=== PATIENT | female | born 1995 | race Caucasian/White ===

== ENCOUNTER 2019-04-05 23:10 | Emergency (ER) | payer OTHER ==
[~2019-04-05] VITALS: Ht 162.6 cm; Wt 104.5 kg
[2019-04-05] MEDS ORDERED: glucagon, human recombinant 1mg kit IV ONE (23:30)
[2019-04-05] MEDS ORDERED: ondansetron/PF 4mg/2ml inj IV ONE (23:30)
--- NOTE | 2019-04-06 00:31 | NUR ---
PATIENT FAILED SWALLOW TEST
[2019-04-06] MEDS ORDERED: NO HOME MEDS (00:57)
[2019-04-06 01:20] VITALS: BP 128/85
[2019-04-06] MEDS ORDERED: MIDAZolam 5mg/5ml vial ONE (01:23)
[2019-04-06] MEDS ORDERED: fentaNYL/PF 50MCG/1 ML 2ML syringe ONE (01:23)
[2019-04-06] MEDS ORDERED: LIDOcaine Viscous 15ml cup ONE (01:23)
[2019-04-06 02:02] VITALS: BP 137/74
[2019-04-06 02:10] VITALS: BP 130/68
[2019-04-06] MEDS ORDERED: pantoprazole 40 MG vial IV ONE (02:10)
[2019-04-06] MEDS ORDERED: PANT-47 PO (02:10)
[2019-04-06 02:20] VITALS: BP 125/74
[2019-04-06 02:30] VITALS: BP 128/87
[2019-04-06 02:55] VITALS: BP 96/130
== END 2019-04-06 02:58 | disposition home or self-care (01) ==
LOC: ER 23:12
DX: T18.128A Food in esophagus causing other injury, initial encounter (principal); Z79.899 Other long term (current) drug therapy; X58.XXXA Exposure to other specified factors, initial encounter; Y93.89 Activity, other specified; Y92.89 Other specified places as the place of occurrence of the external cause; Y99.8 Other external cause status
CPT/HCPCS: 43239; 43247; 96374; 96375; 99152; 99285; C1773; C9113; J1610; J2250; J2405; J3010; J7040; A4620